=== PATIENT | female | born 1980 | race Caucasian/White ===

== ENCOUNTER 2017-01-16 13:15 | Inpatient (IN) | payer OTHER ==
--- NOTE | 2017-01-16 13:59 | HP ---
Past Medical History - Primary Care Physician PCP:: Tez Almaraz - Admission Chief Complaint: [id number] weeks, previous c/s request of c/s History of Present Illness: 36 yo f , edc by sono 01/21/17 with 3 previous c/s , request of repeat c/ s , risks discussed History Source: Patient, Family Member Limitations to Obtaining History: Language Barrier - Past Medical History Gastrointestinal: Yes: Other (fatty liver. H pylori) ...: 4 ...Para: 4 ... Weeks Gestation by Dates: 39 ...EDC by Sono: 01/21/17 Additional OB History: 3 previous c/s - Past Surgical History Past Surgical History: Yes: Hx Myomectomy: No Hx Transabdominal Cerclage: No - Smoking History Have you smoked in the past 12 months: No - Alcohol/Substance Use Hx Alcohol Use: No - Social History Usual Living Arrangement: Yes: With Spouse History of Recent Travel: No Home Medications - Allergies Allergies/Adverse Reactions: Allergies Allergy/AdvReac Type Severity Reaction Status Date / Time No Known Allergies Allergy Verified 01/16/17 14:53 - Home Medications Home Medications: Ambulatory Orders Ibuprofen [Motrin -] 600 mg PO QID #28 tablet 01/19/17 Review of Systems - Review of Systems Constitutional: reports: No Symptoms Eyes: reports: No Symptoms HENT: reports: No Symptoms Neck: reports: No Symptoms Respiratory: reports: No Symptoms Gastrointestinal: reports: No Symptoms Genitourinary: reports: No Symptoms Breasts: reports: No Symptoms Reported Musculoskeletal: reports: No Symptoms Integumentary: reports: No Symptoms Neurological: reports: No Symptoms Endocrine: reports: No Symptoms Hematology/Lymphatic: reports: No Symptoms Psychiatric: reports: No Symptoms Physical Exam - Maternity Constitutional: Yes: Well Nourished, No Distress, Calm Eyes: Yes: WNL, Conjunctiva Clear, EOM Intact HENT: Yes: WNL, Atraumatic, Normocephalic Neck: Yes: WNL, Supple, Trachea Midline Cardiovascular: Yes: WNL, Regular Rate and Rhythm Breast(s): Yes: WNL - Abdominal Exam/OB Fundal Height: 40 Number of Fetuses: Single Presentation: Vertex Contractions: No Regularity: Irritability Intensity: Unaware Monitor Mode: External Heart Rate (range): 139 Heart Rate Location: [facility] Category: I Accelerations: Uniform Decelerations: None - Vaginal Exam/OB Speculum Exam: No Dilatation (cm): closed Effacement (%): 50 Amniotic Membrane Status: Intact Presentation: Vertex/Position Station: -3 - Physical Exam Musculoskeletal: Yes: Muscle Weakness Extremities: Yes: WNL Edema: LLE: Trace, RLE: Trace Deep Tendon Reflex Grade: Normal +2 Psychiatric: Yes: WNL Problem List - Problems (1) with 39 completed weeks gestation Code(s): Z3A.39 - 39 WEEKS GESTATION OF (2) Previous delivery, antepartum Code(s): O34.219 - MATERNAL CARE FOR UNSP TYPE SCAR FROM PREVIOUS DEL Assessment/Plan repeat c/s , rba discussed
[2017-01-16] MEDS ORDERED: CITRIC ACID/SODIUM CITRATE 30 ML UNIT-DOSE CUP PO ONE (14:02)
[2017-01-16] MEDS ORDERED: ELECTROLYTE-148 SOLN 1,000 ML IV SCH (14:15)
[2017-01-16 14:49] VITALS: BMI 29.0
[2017-01-16] MEDS ORDERED: ONDANSETRON 4 MG/2 ML VIAL IVPB PRN (15:47)
[2017-01-16] MEDS ORDERED: morphine SULFATE/Preservative Free 0.5 MG/ML (1cc Syringe) EP ONE (15:47)
[2017-01-16] MEDS ORDERED: IBUPROFEN 800 MG/8 ML IJ IVPB PRN ×2 (15:48→16:23)
[2017-01-16] MEDS ORDERED: BENZOCAINE 28 GM HEMORRHOIDAL OINTMENT PR PRN (16:23)
[2017-01-16] MEDS ORDERED: BENZOCAINE 20% 57 GM BOTTLE TP PRN (16:23)
[2017-01-16] MEDS ORDERED: oxyCODONE HCL 5 MG TABLET PO PRN (16:23)
[2017-01-16] MEDS ORDERED: IBUPROFEN 600 MG TABLET (FP) PO PRN (16:23)
[2017-01-16] MEDS ORDERED: WITCH HAZEL 50% (TUCKS) 40 PAD/JAR PAD TP PRN (16:23)
[2017-01-16] MEDS ORDERED: METHYLERGONOVINE MALEATE 0.2 MG/1 ML AMP IM PRN (16:23)
[2017-01-16] MEDS ORDERED: OXYTOCIN 20 UNITS in 0.9% NS 1,000 ML IV SCH (16:30)
[2017-01-16] MEDS ORDERED: CEFAZOLIN 1 GM/D5W 50 ML IVPB SCH (18:00)
[2017-01-16] MEDS: CEFAZOLIN (PRE-DOCKED) 50 ML IVPB SCH (22:50)
[2017-01-16] MEDS: DEXTROSE 5%-LACTATED RINGERS 1,000 ML IV SCH (22:51)
[2017-01-17] MEDS: diphenhydrAMINE HCL 25 MG CAPSULE (FP) PO PRN ×2 (00:53→12:10)
[2017-01-17] MEDS: CEFAZOLIN (PRE-DOCKED) 50 ML IVPB SCH (06:07)
[2017-01-17] MEDS: DEXTROSE 5%-LACTATED RINGERS 1,000 ML IV SCH (06:08)
--- NOTE | 2017-01-17 07:01 | PN ---
Post Progress Note - Subjective Subjective: doing well, minmal pain Post Day: 1 Type of Delivery: Repeat C/S Vital Signs: Vital Signs Temperature 97.5 F L 01/17/17 05:51 Pulse Rate 64 01/17/17 05:51 Respiratory Rate 18 01/17/17 06:00 Blood Pressure 104/63 01/17/17 05:51 O2 Sat by Pulse Oximetry (%) 99 01/16/17 16:57 Breast Exam: Yes: Soft Uterus: Yes: Fundus Firm Incision: Yes: Dressing dry and intact Abdomen/GI: Yes: Abdomen soft Lochia: Yes: Rubra Lochia, amount: Small Extremities: Yes: Calves non-tender Perineum: Yes: Intact Activity: Ambulating Assessment/Plan as sabove reg diet oob check labs
[2017-01-17 07:39] LABS: BASOPHIL 0.2 % (0-2.0); MCHC 34.3 g/dl (32.0-36.0); MEAN CELL VOLUME 90.5 fl (80-96); MEAN PLT VOLUME 8.5 fl (7.5-11.1); NEUTROPHILS 72.4 % (42.8-82.8); PLATELET COUNT 185 K/MM3 (134-434); WHITE BLOOD COUNT 8.5 K/mm3 (4.0-10.0)
--- NOTE | 2017-01-17 08:10 | PN ---
Progress Note, Physician Chief Complaint: Pt. pain controlled, no VARGAS. Not yet ambulating and still has woodard. No apparent anesthesia complications. - Current Medication List Current Medications: Active Medications Acetaminophen (Tylenol -) 650 mg PO Q4H PRN PRN Reason: FEVER OR PAIN Benzocaine (Americaine Ointment -) 1 applic GA PRN PRN PRN Reason: PAIN Benzocaine (Americaine 20% [place] -) 1 spray TP PRN PRN PRN Reason: PAIN Bisacodyl (Dulcolax Suppository -) 10 mg RC PRN PRN PRN Reason: CONSTIPATION Diphenhydramine HCl (Benadryl -) 25 mg PO Q8H PRN PRN Reason: FOR ITCHING Last Admin: 01/17/17 00:53 Dose: 25 mg Diphtheria/Tetanus/Acell Pertussis (Boostrix -) 0.5 ml IM .ONCE ONE Stop: 01/17/17 10:01 Parenteral Electrolytes (Plasma-Lyte 148 -) 1,000 mls @ 125 mls/hr IV ASD[facility] Last Admin: 01/16/17 13:25 Dose: 125 mls/hr Dextrose/Lactated Ringer's (D5-Lr -) 1,000 mls @ 125 mls/hr IV ASDIR [facility] Last Admin: 01/17/17 06:08 Dose: 125 mls/hr Ibuprofen (Motrin -) 600 mg PO Q4H PRN PRN Reason: PAIN Ibuprofen (Caldolor Injection -) 600 mg IVPB Q8H PRN PRN Reason: FEVER Ibuprofen (Motrin -) 600 mg PO Q4H PRN PRN Reason: PAIN Methylergonovine Maleate (Methergine Injection -) 0.2 mg IM Q4H PRN PRN Reason: EXCESSIVE BLEEDING Oxycodone HCl (Roxicodone -) 5 mg PO Q4H PRN PRN Reason: PAIN LEVEL 1-5 Oxycodone HCl (Roxicodone -) 10 mg PO Q4H PRN PRN Reason: PAIN LEVEL 6-10 Senna/Docusate Sodium (Pericolace -) 1 tablet PO HS PRN PRN Reason: CONSTIPATION Simethicone (Mylicon -) 80 mg PO Q4H PRN PRN Reason: GAS [place]/Glycerin (Tucks Pads -) 1 pad TP PRN PRN PRN Reason: PAIN - Objective Vital Signs: Vital Signs Temperature 97.5 F L 01/17/17 05:51 Pulse Rate 64 01/17/17 05:51 Respiratory Rate 18 01/17/17 06:00 Blood Pressure 104/63 01/17/17 05:51 O2 Sat by Pulse Oximetry (%) 99 01/16/17 16:57 Constitutional: Yes: Well Nourished, No Distress, Calm Musculoskeletal: Yes: WNL Neurological: Yes: WNL, Alert, Oriented ...Motor Strength: WNL Labs: CBC, BMP 01/17/17 06:00 Assessment/Plan POD#1 s/p under spinal with duramorph. Doing well. D/C from anesthesia care once she ambulates and voids normally.
[2017-01-17] MEDS: IBUPROFEN 600 MG TABLET (FP) PO PRN ×3 (08:23→22:10)
[2017-01-17] MEDS: ACETAMINOPHEN 325 MG TABLET (FP) PO PRN ×3 (08:24→22:09)
[2017-01-17] MEDS ORDERED: DIPHTH,PERTUSS(ACELL),TET 0.5 ML DISP.SYRIN IM ONE (10:00)
[2017-01-17] MEDS: SIMETHICONE 80 MG TAB.CHEW (FP) PO PRN ×2 (12:05→22:08)
--- NOTE | 2017-01-17 13:42 | OP ---
DATE OF OPERATION: 01/16/2017 PREOPERATIVE DIAGNOSES: , 39 weeks. Previous section. Request of repeat section. POSTOPERATIVE DIAGNOSIS: Repeat low segment transverse section. SURGEON: Lurdes Almaraz MD MAGAZINE KEEPER: BITA Cha ANESTHESIA: Spinal. ANESTHESIOLOGIST: Trenton Nichols MD ESTIMATED BLOOD LOSS: Five-hundred milliliters. OPERATION: The patient was taken to the operating room and had adequate spinal anesthesia. Abdomen and perineum was prepped and draped. A midline vertical abdominal incision was made over the previous incision. Abdominal wall was cut [id number]. Anterior peritoneum was exposed and incised. Upon entering abdominal cavity, low uterine segment was identified and uterovesical fold of peritoneum established. Bladder was pushed down. A low transverse uterine incision was made. The incision was extended laterally. Amniotic sac was entered. Clear fluid. Head delivered. Nasopharynx was suctioned. A live baby was delivered. Apgars 9 and 9. Placenta was delivered manually. Uterine cavity was cleaned of all remaining tissue. Uterine incision was closed in 2 layers, first layer with 0 Biosyn continuous suture and the second layer with 0 Biosyn imbricating the first layer. Bladder flap was closed with 0 Biosyn continuous suture. Both tubes and ovaries were checked and normal. No active bleeding was seen. All the laparotomy, sponge and instrument counts were correct. Then, peritoneum was closed with 0 Biosyn continuous suture. Muscle was brought together with interrupted suture of 0 Biosyn. Fascia was closed with 0 Biosyn continuous suture, subcutaneous fat with interrupted suture of 0 Biosyn and the skin was closed with jenifer. Patient tolerated procedure well. Left the OR in good condition. LURDES ALMARAZ M.D. [id number]
[2017-01-17] MEDS ORDERED: BISACODYL 10 MG SUPP.RECT RC PRN (16:23)
[2017-01-18] MEDS: SIMETHICONE 80 MG TAB.CHEW (FP) PO PRN ×4 (08:07→23:53)
[2017-01-18] MEDS: ACETAMINOPHEN 325 MG TABLET (FP) PO PRN ×3 (08:07→19:42)
[2017-01-18] MEDS: oxyCODONE HCL 5 MG TABLET PO PRN ×4 (08:08→23:59)
--- NOTE | 2017-01-18 11:33 | PN ---
Post Progress Note - Subjective Subjective: c/o pain scale 4/10 voiding without difficulty Post Day: 2 Type of Delivery: Repeat C/S Vital Signs: Vital Signs Temperature 99.7 F H 01/18/17 10:00 Pulse Rate 78 01/18/17 10:00 Respiratory Rate 18 01/18/17 10:00 Blood Pressure 115/74 01/18/17 10:00 O2 Sat by Pulse Oximetry (%) 99 01/16/17 16:57 Breast Exam: Yes: Soft (BF ), Other. No: Engorged Uterus: Yes: Fundus Firm, Fundus below umbilicus, Non-tender Incision: Yes: Vidhi intact (subumblical midline scar ). No: Redness, Oozing Abdomen/GI: Yes: Abdomen soft, Passing flatus (not done ), Tolerating PO (diet ) . No: Abdominal Distention, Tender Lochia: Yes: Rubra Lochia, amount: Moderate Extremities: Yes: Calves non-tender Perineum: Yes: Intact Activity: Ambulating - Labs Labs: CBC WBC 8.5 K/mm3 (4.0-10.0) 01/17/17 06:00 RBC 3.44 M/mm3 (3.60-5.2) L 01/17/17 06:00 Hgb 10.7 GM/dL (10.7-15.3) 01/17/17 06:00 Hct 31.2 % (32.4-45.2) L 01/17/17 06:00 MCV 90.5 fl (80-96) 01/17/17 06:00 MCHC 34.3 g/dl (32.0-36.0) 01/17/17 06:00 RDW 15.0 % (11.6-15.6) 01/17/17 06:00 Plt Count 185 K/MM3 (134-434) D 01/17/17 06:00 MPV 8.5 fl (7.5-11.1) 01/17/17 06:00 Neutrophils % 72.4 % (42.8-82.8) 01/17/17 06:00 Lymphocytes % 20.6 % (8-40) 01/17/17 06:00 Monocytes % 5.8 % (3.8-10.2) 01/17/17 06:00 Eosinophils % 1.0 % (0-4.5) 01/17/17 06:00 Basophils % 0.2 % (0-2.0) 01/17/17 06:00 Assessment/Plan stable plan ct po care
[2017-01-18] MEDS: SENNOSIDES/DOCUSATE COMBO (SENNA PLUS) TABLET (UD) PO PRN (19:41)
[2017-01-18] MEDS: IBUPROFEN 600 MG TABLET (FP) PO PRN (23:56)
[2017-01-19 08:57] LABS: EOSINOPHIL 3.4 % (0-4.5); MCH 30.7 pg (25.7-33.7); MCHC 33.6 g/dl (32.0-36.0); MEAN CELL VOLUME 91.2 fl (80-96); MEAN PLT VOLUME 7.9 fl (7.5-11.1); NEUTROPHILS 60.5 % (42.8-82.8); PLATELET COUNT 216 K/MM3 (134-434); RDW 15.4 % (11.6-15.6); WHITE BLOOD COUNT 7.6 K/mm3 (4.0-10.0)
[2017-01-19] MEDS: ACETAMINOPHEN 325 MG TABLET (FP) PO PRN ×2 (10:08→18:02)
[2017-01-19] MEDS: IBUPROFEN 600 MG TABLET (FP) PO PRN ×2 (10:09→18:01)
--- NOTE | 2017-01-19 15:03 | PN ---
Post Progress Note - Subjective Subjective: 36 yo Para 4, status post , seen and evaluated. Doing well. Post Day: 2 Type of Delivery: Repeat C/S Vital Signs: Vital Signs Temperature 97.9 F 01/19/17 10:00 Pulse Rate 58 L 01/19/17 10:00 Respiratory Rate 20 01/19/17 10:00 Blood Pressure 116/81 01/19/17 10:00 O2 Sat by Pulse Oximetry (%) 99 01/16/17 16:57 Uterus: Yes: Fundus Firm Incision: Yes: Dressing dry and intact Abdomen/GI: Yes: Abdomen soft, Tolerating PO Lochia: Yes: Rubra Lochia, amount: Small Extremities: Yes: Calves non-tender Perineum: Yes: Intact Activity: Ambulating - Labs Labs: CBC WBC 7.6 K/mm3 (4.0-10.0) 01/19/17 08:40 RBC 3.45 M/mm3 (3.60-5.2) L 01/19/17 08:40 Hgb 10.6 GM/dL (10.7-15.3) L 01/19/17 08:40 Hct 31.5 % (32.4-45.2) L 01/19/17 08:40 MCV 91.2 fl (80-96) 01/19/17 08:40 MCHC 33.6 g/dl (32.0-36.0) 01/19/17 08:40 RDW 15.4 % (11.6-15.6) 01/19/17 08:40 Plt Count 216 K/MM3 (134-434) 01/19/17 08:40 MPV 7.9 fl (7.5-11.1) 01/19/17 08:40 Neutrophils % 60.5 % (42.8-82.8) 01/19/17 08:40 Lymphocytes % 29.4 % (8-40) D 01/19/17 08:40 Monocytes % 5.7 % (3.8-10.2) 01/19/17 08:40 Eosinophils % 3.4 % (0-4.5) D 01/19/17 08:40 Basophils % 1.0 % (0-2.0) D 01/19/17 08:40 Assessment/Plan Status post Stable Consider D/C home tomorrow
[2017-01-20] MEDS: SIMETHICONE 80 MG TAB.CHEW (FP) PO PRN (02:40)
[2017-01-20] MEDS: ACETAMINOPHEN 325 MG TABLET (FP) PO PRN ×2 (02:41→08:07)
[2017-01-20] MEDS: SENNOSIDES/DOCUSATE COMBO (SENNA PLUS) TABLET (UD) PO PRN (02:42)
--- NOTE | 2017-01-20 05:14 | PN ---
Progress Note (short form) - Note Progress Note: pod 3 doing well, no c/o ,voids ok CBC, BMP 01/19/17 08:40 Last Vital Signs Temp Pulse Resp BP Pulse Ox 97.0 F L 60 20 130/74 99 01/19/17 21:11 01/19/17 21:11 01/19/17 21:11 01/19/17 21:11 01/16/17 16:57 abdomen soft, no distension, no cva incision dry, clean no calf tenderness plan cbc, ambulate Problem List - Problems (1) with 39 completed weeks gestation Code(s): Z3A.39 - 39 WEEKS GESTATION OF (2) Previous delivery, antepartum Code(s): O34.219 - MATERNAL CARE FOR UNSP TYPE SCAR FROM PREVIOUS DEL
[2017-01-20] MEDS: IBUPROFEN 600 MG TABLET (FP) PO PRN (08:08)
[2017-01-20 12:45] VITALS: BP 129/78; PULSE 59; TEMP 98.1
--- NOTE | 2017-01-20 14:36 | PATH ---
Surgical Pathology Report Patient Name: BERNARD ARELLANO Med. Rec. 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 Specimen(s) Received PLACENTA Clinical History x3 Final Diagnosis PLACENTA, DELIVERY: FOCALLY DISRUPTED THIRD TRIMESTER PLACENTA WITH INTERVILLOUS FIBRIN DEPOSITION, THREE VESSEL UMBILICAL CORD AND UNREMARKABLE PLACENTAL MEMBRANES. Electronically Signed Hugo Tai M.D. Gross Description The specimen is received fresh labeled placenta and is a 429 gram, 15.5 x 15.0 x 2.8 cm. placenta with attached membranes and umbilical cord. The attached membranes are wilburn, translucent with focal opacities and insert marginally. The umbilical cord measures 24 cm. in length and averages 1 cm. in diameter. The cord inserts centrally. No true knots or strictures are identified. Cut surface of the umbilical cord reveals 3 vessels. The surface is newman blue with moderate fibrin deposition and appropriate caliber vessels. The maternal surface is red-brown with focal defects. Sectioning reveals red-brown, spongy parenchyma. No lesions are identified. Camp Housekeeper sections are submitted in three cassettes as follows: 1- membrane rolls and umbilical cord; 2-3- full thickness sections of placenta. /01/19/2017 saudi01/19/2017
== END 2017-01-20 15:30 | disposition home or self-care (01) | DRG 540 ==
LOC: JLDR 13:15 → J3W 17:17
PROVIDERS: ADMIT Obstetrics & Gynecology; ATTEND Obstetrics & Gynecology
PROC: 10D00Z1 Extraction of Products of Conception, Low, Open Approach (ICD-10-PCS; principal; 2017-01-16)
DX: O34.211 Maternal care for low transverse scar from previous cesarean delivery (principal); O26.62 Liver and biliary tract disorders in childbirth; K76.0 Fatty (change of) liver, not elsewhere classified; Z3A.39 39 weeks gestation of pregnancy; Z37.0 Single live birth
CPT/HCPCS: 36415; 85025; 88307-TC; 90715